=== PATIENT | male | born 1985 | race Caucasian/White ===

== ENCOUNTER 2016-09-23 00:31 | Emergency (ER) | payer SELFPAY ==
[~2016-09-23] VITALS: Ht 170.2 cm; Wt 95.5 kg
[2016-09-23 00:37] VITALS: Ht 170.2 cm; Wt 95.5 kg
[2016-09-23] MEDS ORDERED: MED4DP PO (00:51)
[2016-09-23] MEDS ORDERED: FAMO-18 PO (00:51)
[2016-09-23] MEDS ORDERED: DEXAMETHASONE 10 MG/ML 1 ML INJ IM ONE (01:00)
[2016-09-23] MEDS ORDERED: FAMOTIDINE 20 MG TAB PO ONE (01:00)
--- NOTE | 2016-09-23 01:30 | ERD ---
ER Documentation Chief Complaint Date/Time DATE: 09/23/16 TIME: 01:15 Chief Complaint generalize body rash x 3 days HPI 30 year old male comes to the ER with a generalized pruritic rash that started 3 days ago. He states that it started 3 days ago, he does not recall what might have caused the. He denies any new foods, medications, lotions or creams. He states that he was seen by his primary care doctor the next day on Monday and was treated with a "injection" and then was given a prescription for prednisone , as well as Pepcid. No Chest pain, shortness of breath. ROS All systems reviewed and are negative except as per history of present illness. Medications Home Meds Active Scripts Methylprednisolone* (Medrol* DOSE PACK) 4 Mg/Dose-Pack Tab.ds.pk, 4 MG PO . DIRECTED, #1 PACKET Prov:TRACY ALVARADO PA-C 09/23/16 Famotidine* (Pepcid*) 20 Mg Tablet, 20 MG PO BID for 4 Days, TAB Prov:TRACY ALVARADO PA-C 09/23/16 Allergies Allergies: Coded Allergies: No Known Drug Allergies (Verified Allergy, Unknown, 09/23/16) PMhx/Soc Medical and Surgical Hx: pt denies Medical Hx, pt denies Surgical Hx Hx Alcohol Use: No Hx Substance Use: No Hx Tobacco Use: No Smoking Status: Never smoker Physical Exam Vitals Vital Signs Date Time Temp Pulse Resp B/P Pulse Ox O2 Delivery O2 Flow Rate FiO2 09/23/16 00:37 97.0 70 20 138/82 98 Physical Exam General: Well-developed, well-nourished. The patient appears in no acute distress. HEENT: Head is normocephalic, atraumatic. No scleral icterus. Pupils are equal , round, and reactive. No angioedema Neck: Supple. Nontender. Lungs: Clear to auscultation. Normal air movement. Heart: Regular rate and rhythm. S1 and S2 are normal. No murmurs, gallops, or rubs. Abdomen: Soft, nontender, nondistended. Bowel sounds are normoactive. Extremities: No clubbing or cyanosis. Normal pulses. Moving extremities x 4. No weakness. Neurologic: Alert and oriented 3. No focal deficits. Skin: diffuse urticaria to trunk and extremities, no vesicles, rash is blanchable. Results 24 hrs Current Medications Medications (Trade) Dose Ordered Sig/[place] Route PRN Reason Start Time Stop Time Status Last Admin Dose Admin Dexamethasone (Decadron) 10 mg ONCE ONCE IM 09/23/16 01:00 09/23/16 01:01 DC 09/23/16 00:58 Famotidine (Pepcid) 20 mg ONCE ONCE PO 09/23/16 01:00 09/23/16 01:01 DC 09/23/16 00:58 Procedures/MDM ED COURSE: Pt was given Decadron 10mg IM, and pepcid 20mg po. Patient was observed in the emergency department, he states that he is feeling much better at this time. I was unable to give the patient Benadryl in the ER, patient reports that he is driving home. MDM: 30 yo male comes in with a generalized rash that appears to be an allergic reaction. No signs of persistent systemic response, angioedema. Patient likely was reexposed to allergen. There are no signs of Dennis Gen's, bacterial infection, cellulitis, abscess. He was previously taking prednisone, he was given a Medrol Dosepak rather and was asked to discontinue the previous prescription. He was asked to take Benadryl 50 mg every 6 hours, he has a prescription for this already. Additionally he will be given Pepcid to be taken twice a day. Departure Diagnosis: Primary Impression: Allergic reaction Condition: Good Patient Instructions: Allergic Reaction, Other (General) Additional Instructions: Llame al doctor MAANA y charis xiao MONISHA PARA DENTRO DE 1-2 ARREOLA.Dgale a la secretaria que nosotros le instruimos hacer esta monisha.Avise o llame si roy condicin se empeora antes de la monisha. Regresa aqui si peor o no mejor. TRACY ALVARADO PA-C Sep 23, 2016 01:30
[2016-09-23 01:34] VITALS: BP 134/88; PULSE 68; RESP 19; TEMP 98
== END 2016-09-23 01:34 | disposition home or self-care (01) ==
LOC: FTE 00:31
DX: R21 Rash and other nonspecific skin eruption (principal)
CPT/HCPCS: 96372; 99284; J1100